=== PATIENT | male | born 1980 | race Caucasian/White ===

== ENCOUNTER 2016-06-24 11:37 | Emergency (ER) | payer OTHER ==
[2016-06-24 11:37] LABS: BASOPHIL 0.6 % (0-2); HGB 15.7 g/dl (13.2-18.0); LYMPHOCYTE 20.5 % (15-48); MCH 29.8 pg (25.0-31.0); MCHC 34.1 g/dL (32.0-36.0); MCV 87.3 fL (78.0-100.0); MPV 9.2 fL (6.0-9.5); NEUTROPHIL 68.9 % (41-80); PLT 321 K/uL (150-400); RBC 5.27 M/uL (4.70-6.00); RDW 13.3 % (11.5-14.0); WBC 8.1 K/uL (4.0-10.5)
[2016-06-24 11:45] LABS: BILIRUBIN NEGATIVE (NEGATIVE); BLOOD TRACE-LYSED Ery/uL (NEGATIVE); CLARITY CLEAR (CLEAR); COLOR YELLOW (YELLOW); GLUCOSE (U) NORMAL (NORMAL); KETONE (U) NEGATIVE (NEGATIVE); LEUKOCYTES NEGATIVE Leu/uL (NEGATIVE); NITRITE NEGATIVE (NEGATIVE); PROTEIN NEGATIVE (NEGATIVE); SPECIFIC GRAVITY 1.025 (1.001-1.030); UROBILINOGEN 0.2 mg/dL (0.2-1.0)
[2016-06-24 11:49] LABS: ALBUMIN 4.6 g/dL (3.5-5.0); BILIRUBIN - TOTAL 0.4 mg/dL (0.1-1.0); CREATININE 0.9 mg/dL (0.7-1.2); GLOBULIN (CALCULATION) 2.4 g/dL (2.2-4.2); PHOSPHORUS 3.1 mg/dL (2.7-4.5); POTASSIUM 3.9 mmol/L (3.5-5.1)
[2016-06-24 11:55] LABS: BACTERIA TRACE; MUCOUS MODERATE
[2016-06-24 12:19] LABS: AMPHETAMINES NEGATIVE (NEGATIVE); BENZODIAZEPINES NEGATIVE (NEGATIVE); COCAINE NEGATIVE (NEGATIVE)
[2016-06-24 12:20] LABS: BARBITURATES NEGATIVE (NEGATIVE); MARIJUANA (THC) POSITIVE (NEGATIVE); METHADONE NEGATIVE (NEGATIVE); TRICYCLIC ANTIDEPRESSANT NEGATIVE (NEGATIVE)
== END 2016-06-24 13:08 | disposition home or self-care (01) ==
LOC: FER 11:37
PROVIDERS: Emergency Medicine; Nurse Practitioner Family
DX: R10.31 Right lower quadrant pain (principal); R11.0 Nausea; F17.210 Nicotine dependence, cigarettes, uncomplicated; Z87.442 Personal history of urinary calculi; Z90.49 Acquired absence of other specified parts of digestive tract
CPT/HCPCS: 36415; 80053; 80305; 81001; 84100; 85025; 87088; J2175; J2405

== ENCOUNTER 2021-07-17 14:05 | Emergency (ER) | payer OTHER ==
[2021-07-17] MEDS ORDERED: BACTRIM DS TAB1 EACH PO (14:57)
[2021-07-17] MEDS ORDERED: VIBRAMYCIN100 MG PO (14:57)
== END 2021-07-17 16:24 | disposition home or self-care (01) ==
LOC: FER 14:05
DX: L03.115 Cellulitis of right lower limb (principal); F17.200 Nicotine dependence, unspecified, uncomplicated
CPT/HCPCS: 99283